=== PATIENT | male | born 1945 | race Caucasian/White ===

== ENCOUNTER → 2018-03-29 | Outpatient (CLI) | payer OTHER | LOC: FIMAGING 14:34 | PROVIDERS: ATTEND Family Medicine | DX: R59.0 Localized enlarged lymph nodes (principal) ==

== ENCOUNTER 2018-08-18 12:11 | Emergency (ER) | payer OTHER ==
[2018-08-18] MEDS ORDERED: NS 1,000 ML IV ONE (13:23)
[2018-08-18] MEDS ORDERED: ONDANSETRON 4 MG/2 ML VIAL IVP ONE (13:40)
--- NOTE | 2018-08-18 13:41 | EDPHY ---
HPI/HX/ROS/PE/MDM Narrative: CHIEF COMPLAINT: Dehydration HPI: This patient is a pleasant 73 year old male with history of salivary gland cancer, currently undergoing radiation therapy. He presents at the request of his oncologist at [facility] for IV rehydration. He complains of nausea and persistent vomiting for the past two days. He has been unable to tolerate food or fluids since onset. He denies hematemesis and notes his emesis has been mostly bile. He has two radiation treatments remaining and wants to control symptoms until he can complete these. His oncologist, Dr. Espitia, sent prescription for a stronger antiemetic but the patient presents here to the ED first for rehydration. The patient continues to feel nauseous currently. No chest pain, shortness of breath, fever, or other associated symptoms. REVIEW OF SYSTEMS: A comprehensive 10 system review of systems is otherwise negative aside from elements mentioned in the history of present illness and medical decision making. PMH: Salivary gland cancer. SOCIAL HISTORY: . at bedside. Employed. PHYSICAL EXAM: General:Patient is alert, in no acute distress. ENT:Eyes are normal to inspection. Stigmata of radiation therapy to pharynx. Neck: Normal inspection. Full range of motion. Respiratory:No respiratory distress. Breath sounds normal bilaterally. Cardiovascular: Regular rate and rhythm. Strong peripheral pulses. Normal cap refill. Abdomen:The abdomen is nontender to palpation. There are no peritoneal signs. There are normal bowel sounds. Back: Normal to inspection. No tenderness to palpation. Skin: Normal color. No rash. Warm and dry. Extremities: Normal appearance. Full range of motion. Neuro: Oriented x3. Normal motor function. Normal sensory function. ED Course: 73 y/o male with history of salivary gland cancer who is currently undergoing radiation therapy presents at the request of his providers at [facility] for IV rehydration. Plan to administer 1L IV NS and 4mg IV Zofran. Plan for labs including CBC, chemistries. Laboratory studies largely unremarkabel. Reassessed. Patient is feeling better following IV rehydration and was able to nap. He is comfortable with discharge home for outpatient followup with his oncologist and primary care provider. Follow up and return precautions discussed. He is comfortable with this plan. - Data Points Laboratory Results: Laboratory Results 08/18/18 13:34 08/18/18 13:34 08/18/18 08/18/18 13:34 13:34 WBC 11.41 10^3/uL H 10^3/uL (3.80-9.50) RBC 5.70 10^6/uL 10^6/uL (4.40-6.38) Hgb 17.0 g/dL g/dL (13.7-17.5) Hct 49.9 % % (40.0-51.0) MCV 87.5 fL fL (81.5-99.8) MCH 29.8 pg pg (27.9-34.1) MCHC 34.1 g/dL g/dL (32.4-36.7) RDW 12.9 % % (11.5-15.2) Plt Count 235 10^3/uL 10^3/uL (150-400) MPV 8.9 fL fL (8.7-11.7) Neut % (Auto) 84.1 % H % (39.3-74.2) Lymph % (Auto) 5.5 % L % (15.0-45.0) [place] % (Auto) 9.5 % % (4.5-13.0) Eos % (Auto) 0.2 % L % (0.6-7.6) Baso % (Auto) 0.4 % % (0.3-1.7) Nucleat RBC Rel Count 0.0 % % (0.0-0.2) Absolute Neuts (auto) 9.61 10^3/uL H 10^3/uL (1.70-6.50) Absolute Lymphs (auto) 0.63 10^3/uL L 10^3/uL (1.00-3.00) Absolute Monos (auto) 1.08 10^3/uL H 10^3/uL (0.30-0.80) Absolute Eos (auto) 0.02 10^3/uL L 10^3/uL (0.03-0.40) Absolute Basos (auto) 0.04 10^3/uL 10^3/uL (0.02-0.10) Absolute Nucleated RBC 0.00 10^3/uL 10^3/uL (0-0.01) Immature Gran % 0.3 % % (0.0-1.1) Immature Gran # 0.03 10^3/uL 10^3/uL (0.00-0.10) Sodium 140 mEq/L mEq/L (135-145) Potassium 4.2 mEq/L mEq/L (3.5-5.2) Chloride 101 mEq/L mEq/L (97-110) Carbon Dioxide 27 mEq/l mEq/l (22-31) Anion Gap 12 mEq/L mEq/L (6-14) BUN 27 mg/dL H mg/dL (7-23) Creatinine 1.0 mg/dL mg/dL (0.7-1.3) Estimated GFR > 60 Glucose 110 mg/dL H mg/dL (70-100) Calcium 12.3 mg/dL H mg/dL (8.5-10.4) Phosphorus 3.0 mg/dL mg/dL (2.5-4.5) Medications Given: Discontinued Medications Sodium Chloride (Ns) 1,000 mls @ 0 mls/hr IV EDNOW ONE; Wide Open PRN Reason: Protocol Stop: 08/18/18 13:24 Last Admin: 08/18/18 13:30 Dose: 1,000 mls Ondansetron HCl (Zofran) 4 mg IVP EDNOW ONE Stop: 08/18/18 13:41 Last Admin: 08/18/18 13:59 Dose: 4 mg General Time Seen by Provider: 08/18/18 13:22 Initial Vital Signs: Initial Vital Signs Temperature (C) 36.9 C 08/18/18 12:21 Heart Rate 78 08/18/18 12:21 Respiratory Rate 18 08/18/18 12:21 Blood Pressure 119/85 H 08/18/18 12:21 O2 Sat (%) 92 08/18/18 12:21 O2 Delivery Mode Room Air Allergies/Adverse Reactions: No Known Allergies Allergy (Unverified 08/18/18 12:21) Departure - Departure Disposition: Home, Routine, Self-Care Clinical Impression: Dehydration Condition: Good Instructions: Dehydration (ED) Additional Instructions: Stay well hydrated. Take your antiemetic medications as prescribed. Follow up with your oncologist as directed. Follow up with your primary care provider in 2-3 days. Return to the emergency department for inability to tolerate fluids by mouth, severe pain, difficulty breathing, fever, chest pain, or other worsening of condition. Referrals: SARY,CORYDON S [Primary Care Provider] - As per Instructions Report Scribed for: Nick Russell Report Scribed by: Jessica Kern Date of Report: 08/18/18 Time of Report: 13:41 Physician Review and Approval Statement: Portions of this note were transcribed by an ED scribe. I personally performed the history, physical exam, and medical decision making; and confirm the accuracy of the information in the transcribed note.
[2018-08-18 14:03] LABS: PLATELET COUNT 235 10^3/uL (150-400)
[2018-08-18 15:17] VITALS: BP 128/80
== END 2018-08-18 15:17 | disposition home or self-care (01) ==
DX: E86.0 Dehydration (principal); R11.2 Nausea with vomiting, unspecified; C08.9 Malignant neoplasm of major salivary gland, unspecified
CPT/HCPCS: 96361; 96374; 99284; J2405

== ENCOUNTER 2018-08-25 08:59 | Emergency (ER) | payer OTHER ==
[2018-08-25] MEDS ORDERED: NS 1,000 ML IV ONE ×2 (09:21→09:56)
[2018-08-25] MEDS ORDERED: PROMETHAZINE HCL 25 MG/ML INJ IVP ONE (09:28)
[2018-08-25 09:49] LABS: PLATELET COUNT 221 10^3/uL (150-400)
--- NOTE | 2018-08-25 09:50 | EDPHY ---
General - History Smoking Status: Never smoked Time Seen by Provider: 08/25/18 09:06 Narrative: CLINICAL IMPRESSION: Nausea/Vomiting, Anorexia ASSESSMENT/PLAN: 73-year-old male with a past medical history of adenocarcinoma of the right submandibular gland, status post excision and completion of radiation treatment through [facility] approximately 1.5 week ago. Patient was seen in this emergency department 1 week ago for persistent nausea and vomiting as well as inability to eat secondary to decreased appetite and poor olfactory sensation. Since his discharge from our ED recently, he has continued to avoid eating and drinking because "nothing tastes good". He has Zofran at home. Patient reports no pain. Clinically he appears mildly dehydrated but without signs of severe dehydration. No abdominal pain, diarrhea, fever or chills. He received 2 L IV fluid. He is tolerating secretions well. After significant encouragement he was able to tolerate some ice chips and apple juice. Had a long discussion with the patient regarding options moving forward should he choose not to eat including TPN and or G-tube placement for parental nutrition. Patient does not wish to go to hospice nor does he wish to have a G-tube. We did discuss an offer admission however patient and his feel they can go home and work on hydration at home. His has been very good about offering him numerous choices of soft foods, liquid foods, and ensure. I encouraged him to follow up with his [facility] oncologist sooner than September 17 and to call for a appointment. Warning signs for return to emergency department sooner were outlined and discharge and person. DIFFERENTIAL DX: Differential diagnosis includes but not limited to post radiation nausea and vomiting, lack of appetite, severe dehydration, electrolyte imbalance ED PROCEDURES: See lab and/or imaging results below ED COURSE: 9:30 a.m.:. Patient seen and assessed by myself. Nontoxic and nonseptic appearing, will plan for IV fluids, lab check, and IV antiemetics. 10:40 a.m.: Patient reassessed. States he is feeling better after IV fluids. Tried ice chips. Willing to try water but does not want to try anything else. ED RN informs me patient is not doing well with p. O. Challenge and refusing to eat or drink. I discussed the case with Reva from hospital service at 11:30 a.m.. She accepted admission. I then spoke again with the family and patient and would like to go home. He did take apple juice finally. He agrees to try to drink at home and will contact his primary [facility] based oncologist for sooner appointment. Admission was canceled. Reva informed. CHIEF COMPLAINT: Nausea, vomiting, loss of appetite HPI: 73-year-old male with past medical history of a right submandibular salivary gland cancer followed by [facility] in [place], presents to the emergency department with persistent nausea, vomiting, decreased appetite and difficulty eating and drinking. Patient was seen in this emergency department 1 week ago for the same. Received IV fluid hydration and antiemetics. He has a prescription for Zofran 8 mg at home, but does not like to take it. He reports he has no sense of smell or taste. He states he has not had anything substantial to eat or drink in 10 days. He is still producing urine but reports it is dark. He has not had a bowel movement in 10 days. He reports his saliva is very thick. He reports no abdominal pain or diarrhea. He sees his primary oncologist on September 17. He sees his local radiation oncologist on September 03. 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 Eyes: No discharge, vision change ENT: No sore throat, congestion, ear pain. Cardiovascular: No chest pain, no palpitations. Respiratory: No cough, no shortness of breath. Gastrointestinal: No abdominal pain, positive for nausea and vomiting, denies diarrhea. Genitourinary: No hematuria, dysuria, flank pain, pelvic pain Skin: No rashes, color change. PHYSICAL EXAM: General Appearance: Alert, oriented, appropriate, cooperative, NAD, well hydrated, non-toxic appearing, hypertensive, afebrile, tolerating secretions no hypoxia. HEENT: Oropharynx clear is no erythema or exudates, no tonsillar hypertrophy or asymmetry. Dry mucous membranes with thick saliva noted Dentition without abnormality. Eyes: PERRLA, no acute vision change, nystagmus, swelling, discharge, pain or photosensitivity. Conjunctiva pink, no pallor or injection Neck: [Supple, nontender, no lymphadenopathy, expected changes to radiation therapy to the right submandibular region, no signs of infection or swelling Respiratory: There are no retractions, lungs are clear to auscultation. Cardiac: Regular rate and rhythm, no murmurs or gallops. Gastrointestinal: Abdomen is soft, nontender, bowel sounds normal, no masses/ hernia, no rigidity, guarding or focal peritoneal findings. Neurological: [ Alert and oriented x 3 Skin: Warm, dry, no rashes, no nodules on palpation. MEDICAL DECISION MAKING: Patient was seen independently. Secondary supervising physician at time of evaluation was Dr. Samson. Diagnosis: Nausea, anorexia . New, requires workup Summary: See Assessment and Plan for summary of ED visit Clinical lab tests: ordered / reviewed. Decision to obtain medical records or history from someone other than the patient: Patient's Review / Summarize previous medical records: Reviewed recent ED records Discussed patient with another provider: Hospitalist Patient Progress: Stable, for discharge. (Noe Day) Medical Decision Making: I did not see this patient while he was in the emergency department. However his care was discussed with the PA while the patient was in the department. I agree with treatment plan and management (Baljit Samson) - Objective Vital Signs: Initial Vital Signs Temperature (C) 36.5 C 08/25/18 09:02 Heart Rate 89 08/25/18 09:02 Respiratory Rate 18 08/25/18 09:02 Blood Pressure 137/100 H 08/25/18 09:02 O2 Sat (%) 93 08/25/18 09:02 O2 Delivery Mode Room Air Allergies/Adverse Reactions: No Known Allergies Allergy (Verified 08/25/18 09:01) Home Medications: Medication Instructions Recorded Ondansetron Odt [Zofran Odt 4 mg 8 mg PO TID PRN 08/25/18 (*)] Laboratory Results: Laboratory Results 08/25/18 09:15 08/25/18 09:15 08/25/18 08/25/18 09:15 09:15 WBC 8.28 10^3/uL 10^3/uL (3.80-9.50) RBC 5.97 10^6/uL 10^6/uL (4.40-6.38) Hgb 17.8 g/dL H g/dL (13.7-17.5) Hct 52.5 % H % (40.0-51.0) MCV 87.9 fL fL (81.5-99.8) MCH 29.8 pg pg (27.9-34.1) MCHC 33.9 g/dL g/dL (32.4-36.7) RDW 12.7 % % (11.5-15.2) Plt Count 221 10^3/uL 10^3/uL (150-400) MPV 9.2 fL fL (8.7-11.7) Neut % (Auto) 82.7 % H % (39.3-74.2) Lymph % (Auto) 7.5 % L % (15.0-45.0) [place] % (Auto) 8.5 % % (4.5-13.0) Eos % (Auto) 0.6 % % (0.6-7.6) Baso % (Auto) 0.5 % % (0.3-1.7) Nucleat RBC Rel Count 0.0 % % (0.0-0.2) Absolute Neuts (auto) 6.85 10^3/uL H 10^3/uL (1.70-6.50) Absolute Lymphs (auto) 0.62 10^3/uL L 10^3/uL (1.00-3.00) Absolute Monos (auto) 0.70 10^3/uL 10^3/uL (0.30-0.80) Absolute Eos (auto) 0.05 10^3/uL 10^3/uL (0.03-0.40) Absolute Basos (auto) 0.04 10^3/uL 10^3/uL (0.02-0.10) Absolute Nucleated RBC 0.00 10^3/uL 10^3/uL (0-0.01) Immature Gran % 0.2 % % (0.0-1.1) Immature Gran # 0.02 10^3/uL 10^3/uL (0.00-0.10) Sodium 141 mEq/L mEq/L (135-145) Potassium 3.9 mEq/L mEq/L (3.5-5.2) Chloride 104 mEq/L mEq/L (97-110) Carbon Dioxide 25 mEq/l mEq/l (22-31) Anion Gap 12 mEq/L mEq/L (6-14) BUN 29 mg/dL H mg/dL (7-23) Creatinine 1.2 mg/dL mg/dL (0.7-1.3) Estimated GFR 59 Glucose 101 mg/dL H mg/dL (70-100) Calcium 12.0 mg/dL H mg/dL (8.5-10.4) Phosphorus 2.7 mg/dL mg/dL (2.5-4.5) Medications Given: Discontinued Medications Sodium Chloride (Ns) 1,000 mls @ 0 mls/hr IV EDNOW ONE; Wide Open PRN Reason: Protocol Stop: 08/25/18 09:22 Last Admin: 08/25/18 09:22 Dose: 1,000 mls Sodium Chloride (Ns) 1,000 mls @ 0 mls/hr IV EDNOW ONE; Wide Open PRN Reason: Protocol Stop: 08/25/18 09:57 Last Admin: 08/25/18 09:57 Dose: 1,000 mls Promethazine HCl (Phenergan) 12.5 mg IVP ONCE ONE Stop: 08/25/18 09:29 Last Admin: 08/25/18 09:40 Dose: 12.5 mg Departure - Departure Disposition: Home, Routine, Self-Care Clinical Impression: Anorexia Nausea & vomiting Qualifiers: Vomiting type: unspecified Vomiting Intractability: non-intractable Qualified Code(s): R11.2 - Nausea with vomiting, unspecified Condition: Fair Instructions: Acute Nausea and Vomiting (ED) Additional Instructions: DISCHARGE INSTRUCTIONS FROM YOUR DOCTOR Thank you for visiting our emergency department today. You were treated by a physician inside sales assistant today and your case was reviewed with our ED Attending physician. Please keep in mind that discharge from the emergency department does not mean that there is nothing wrong - it simply means that we have not identified an emergency condition that requires further evaluation or treatment in the hospital. You should always plan to follow up with primary care for re- evaluation of your condition in the next 2-3 days. If you have been referred to a specialist, please call as soon as possible (today or tomorrow) to schedule your follow up appointment at the appropriate time. GIVEN YOUR PERSISTENT ANOREXIA AND NAUSEA WE RECOMMENDED ADMISSION HOWEVER YOU HAVE DECLINED. IT IS VERY IMPORTANT THAT YOU STAY HYDRATED AT HOME AND TRY TO EAT SOFT FOODS. PLEASE CONTACT YOUR ONCOLOGIST TO REQUEST A SOONER APPOINTMENT. PLEASE BE AWARE THAT FAILURE TO STAY HYDRATED MAY REQUIRE A G- TUBE FOR ARTIFICIAL NUTRITION REPLACEMENT. RETURN TO THE EMERGENCY DEPARTMENT FOR INABILITY TO URINATE, ABDOMINAL PAIN, SEVERE DEHYDRATION, INABILITY TO STAY HYDRATED, OR ANY OTHER CONCERNS. People present with illnesses and injuries in different ways, and it is always possible that we have missed something. You may always return for re-evaluation if symptoms worsen or if they are not improving or if you develop new/different symptoms. Again, thank you for choosing our emergency department. We hope that you feel better. Referrals: AMA OKEEFE [Primary Care Provider] - 1-2 days without fail
[2018-08-25 11:53] VITALS: BP 136/74
== END 2018-08-25 12:08 | disposition home or self-care (01) ==
LOC: UNDOADMOB 11:31
DX: R63.0 Anorexia (principal); R11.2 Nausea with vomiting, unspecified; C08.9 Malignant neoplasm of major salivary gland, unspecified
CPT/HCPCS: 96361; 96374; 99284; J2550